=== PATIENT | female | born 1985 | race Two or more races ===

== ENCOUNTER 2020-09-21 14:16 | Outpatient (REF) | payer OTHER, SELFPAY ==
[2020-09-21 16:03] LABS: Glucose Urine UA NEG (NEG); Leukocyte Esterase Urine NEG (NEG); Nitrite Urine NEG (NEG); PH 5.5 (5.0-8.0); Specific Gravity - Urine 1.025 (1.005-1.025); Urine Blood NEG (NEG); Urine Ketones NEG (NEG); Urine Protein NEG (NEG-TRACE)
[2020-09-21 16:04] LABS: Appearance Urine CLEAR; Color Urine YELLOW
[2020-09-21 16:09] LABS: C Reactive Protein 1.02 mg/dL (< or = 0.50); Rheumatoid Factor < 15.0 IU/mL (<15.0)
[2020-09-21 16:16] LABS: Erythrocyte Sedimentation Rate 23 MM/HR (0-20)
[2020-09-21 16:31] LABS: Thyroid Stimulating Hormone 0.41 uIU/mL (0.32-4.0)
[2020-09-21 16:52] LABS: Bacteria Urine 1+ /LPF; Mucus Urine TRACE /LPF; RBC Urine 0 /HPF (0); Squamous Epithelial Cell Urine TRACE /LPF; WBC Urine 0-2 /HPF (0-4)
[2020-09-22 09:16] LABS: Thyroglobulin Antibodies <1 IU/mL (< or = 1); Thyroid Peroxidase Antibodies <1 IU/mL (<9)
[2020-09-22 13:17] LABS: Complement C3 188 mg/dL (83-193)
[2020-09-22 13:41] LABS: Anti DNA DS Antibody <1 IU/mL; Antibody to SS-A Antigen <1.0 NEG AI (<1.0 NEG); Antibody to SS-B Antigen <1.0 NEG AI (<1.0 NEG); SM/Ribonucleoprotein Ab <1.0 NEG AI (<1.0 NEG); Scleroderma 70 Antibody <1.0 NEG AI (<1.0 NEG); Smith Protein <1.0 NEG AI (<1.0 NEG)
[2020-09-22 15:22] LABS: Cyclic Citrullinated Peptide <16 UNITS
[2020-09-22 22:31] LABS: Anti Nuclear Antibody Screen POSITIVE (NEGATIVE)
== END 2020-09-21 14:17 | disposition home or self-care (01) ==
LOC: HO.LAB 14:16
PROVIDERS: PCP Internal Medicine; Visit Provider Student in an Organized Health Care Education/Training Program
DX: R76.8 Other specified abnormal immunological findings in serum (principal); M32.9 Systemic lupus erythematosus, unspecified; L56.4 Polymorphous light eruption; M54.5 Low back pain; M25.562 Pain in left knee; M25.561 Pain in right knee; E78.5 Hyperlipidemia, unspecified; F41.9 Anxiety disorder, unspecified; Z88.5 Allergy status to narcotic agent; Z88.0 Allergy status to penicillin; Z79.899 Other long term (current) drug therapy
CPT/HCPCS: 36415; 81001; 84443; 85652; 86038; 86039; 86140; 86160; 86200; 86225; 86235; 86376; 86431; 86800; 99202

== ENCOUNTER → 2020-10-07 10:53 | Outpatient (BNVA) | payer OTHER, SELFPAY | PROVIDERS: PCP Internal Medicine; Visit Provider Student in an Organized Health Care Education/Training Program | DX: R76.8 Other specified abnormal immunological findings in serum (principal); L56.4 Polymorphous light eruption | CPT/HCPCS: 99212 ==